=== PATIENT | male | born 1955 | race Caucasian/White ===

== ENCOUNTER 2017-03-03 12:26 | Emergency (ER) | payer OTHER ==
[~2017-03-03] VITALS: Ht 195.6 cm; Wt 102.0 kg
[~2017-03-03 12:26] MED LIST: ATOR10TA PO; FENT50DI T-DERMAL; GABA400 PO; LISI-366 PO; MELO15; PERC10TA27 PO; VERA80TA PO; ZOLP10TA3 PO
[2017-03-03 12:28] VITALS: BP 92/54; PULSE 95; RESP 15; TEMP 98.1; O2SAT 95
[2017-03-03 13:28] VITALS: BP 106/71; PULSE 90; RESP 18; O2SAT 98
[2017-03-03] MEDS ORDERED: DEXAMETHASONE SOD PHOS 4 MG/ML VIAL IM ONE (13:45)
[2017-03-03] MEDS ORDERED: PRED20 PO (13:50)
--- NOTE | 2017-03-03 13:50 | PD ---
HPI Chief Complaint: Back/ Neck Pain or Injury Time Seen by Provider: 13:41 Travel History International Travel<30 days: No Contact w/Intl Traveler<30days: No Traveled to known affect area: No History of Present Illness HPI 62-year-old male with a history of chronic back pain presents to the emergency department for evaluation of pain radiating from right buttock to right thigh for 1 week. Patient states that the pain began several days after receiving a lumbar spine epidural injection at his pain management office. States that it is a sharp cramping pain that originates in his right buttock and hip and radiates to the right thigh. States that the pain is aggravated when he bears weight on this leg. Pain is alleviated with rest and heat. He denies any traumatic injury to his back or hip. Denies any numbness or tingling, weakness , saddle anesthesia, bowel or bladder incontinence, fever, chills, nausea, vomiting. Patient states that he has had similar symptoms in the left leg previously but not in the right leg. The patient states he has been taking his regularly prescribed and scheduled Percocet, fentanyl and Lyrica without improvement of symptoms. No other complaints. PFSH Past Medical History Hx Anticoagulant Therapy: No Cardiovascular Problems: Yes (HTN ) Diabetes: No Hypertension: Yes Neurologic: Yes (Spinal cord stimulator march 2016) Triglycerides - High: Yes Social History Alcohol Use: No Tobacco Use: Yes (1.5 ppd) Substance Use: No Allergies-Medications (Allergen,Severity, Reaction): Coded Allergies: No Known Allergies (Unverified , 12/26/15) Reported Meds & Prescriptions Reported Meds & Active Scripts Active Reported Fentanyl 50 Mcg/Hr patch (Fentanyl) 50 Mcg/Hr Dis 1 Patch T-DERMAL Q3D Verapamil Hcl (Verapamil HCl) 80 Mg Tab 80 Mg PO TID Mobic 15 Mg Tab (Meloxicam) 15 Mg Tab 15 Mg .XX Neurontin (Gabapentin) 400 Mg Cap 400 Mg PO TID Lisinopril 40 mg (Lisinopril) 40 Mg Tab 1 Tab PO DAILY Atorvastatin 10 mg (Atorvastatin Calcium) 10 Mg Tab 10 Mg PO DAILY Ambien 10 Mg Tab (Zolpidem Tartrate) 10 Mg Tab 10 Mg PO HS Percocet 10/325 (Oxycodone/Acetaminophen) Oxycodone 10/325 Acetaminophen Tab 1 Tab PO TID Review of Systems Except as stated in HPI: all other systems reviewed are Neg Physical Exam Narrative GENERAL: Well-nourished and well-developed pleasant male patient in no acute distress who is nontoxic appearing. SKIN: Warm and dry. HEAD: Normocephalic and atraumatic. EYES: No injection, drainage, or hyphema noted. PERRLA. EOMI. ENT: No nasal drainage noted. Oropharynx is clear. NECK: Supple and the trachea is midline. CARDIOVASCULAR: Regular rate and rhythm. RESPIRATORY: Breath sounds are equal bilaterally with no accessory muscle use, wheezing, rhonchi, or crackles. GASTROINTESTINAL: Abdomen is soft, non-tender, and nondistended. MUSCULOSKELETAL: Right leg SLR positive. No obvious deformities, swelling, cyanosis, or ecchymosis is present throughout the upper and lower extremities. Patient has full range of motion without any signs of neurovascular compromise. Strength 5/5 upper and lower extremities equal bilaterally. Sensation is intact. BACK: Nontender without any obvious deformities, bony point tenderness, or crepitus noted throughout the thoracic and lumbar vertebrae. NEUROLOGICAL: Awake, alert, and oriented. Normal speech and gait. Cranial nerves are grossly intact. Data Data Last Documented VS Vital Signs Date Time Temp Pulse Resp B/P Pulse Ox O2 Delivery O2 Flow Rate FiO2 03/03/17 13:28 90 18 106/71 98 Room Air 03/03/17 12:28 98.1 MDM Medical Decision Making Medical Screen Exam Complete: Yes Emergency Medical Condition: Yes Differential Diagnosis Sciatica versus lumbar radiculopathy versus muscle strain versus muscle spasm Narrative Course 62-year-old male presents to the emergency department for evaluation of pain radiating from right buttock to her right thigh. Patient is afebrile. Blood pressure is a little low at 92/54 and 106/71, however patient is taking chronic opiates. No focal neurologic deficits. No red flag signs or symptoms to indicate need for emergent imaging. The patient's symptoms and physical exam findings are consistent with sciatica or lumbar radiculopathy. The patient's already on fentanyl and Percocet for pain and Lyrica for neuropathy. I'll give the patient Decadron 8 mg IM here in the ED and discharge him with prednisone for 5 days. Discussed supportive care with the patient. He is advised to follow up as an outpatient with his PCP or pain management physician. Patient verbalizes understanding and is in agreement with treatment plan. Diagnosis Primary Impression: Sciatica of right side Referrals: Primary Care Physician Patient Instructions: General Instructions, Sciatica (ED) Additional Instructions: Rest. Apply heating pad. Do not fall asleep on heating pad. Take medications as prescribed with food and a full glass of water. Follow-up with your Primary Care Physician. Return to the ED for any acute worsening of symptoms. Med/Other Pt SpecificInfo: Prescription(s) given Disposition: 01 DISCHARGE HOME Condition: Stable Mora Love Mar 03, 2017 13:50
== END 2017-03-03 14:38 | disposition home or self-care (01) ==
LOC: NEPE 12:26
DX: M54.31 Sciatica, right side (principal); I10 Essential (primary) hypertension; E11.9 Type 2 diabetes mellitus without complications; E78.1 Pure hyperglyceridemia; F17.200 Nicotine dependence, unspecified, uncomplicated; Z98.890 Other specified postprocedural states; Z86.69 Personal history of other diseases of the nervous system and sense organs
CPT/HCPCS: 96372; 99284; J1100